=== PATIENT | female | born 1975 | race Caucasian/White ===

== ENCOUNTER 2025-01-01 18:24 | Emergency (ER) | payer OTHER, SELFPAY ==
[2025-01-01 18:36] VITALS: BP 103/68; PULSE 81; RESP 16; TEMP 36.2; O2SAT 100
--- NOTE | 2025-01-01 18:48 | ED_ITS ---
HPI - Extremity Problem General Chief complaint: Skin/Abscess/Foreign Body Stated complaint: Skin Issues Time Seen by Provider: 01/01/25 18:40 Source: patient Mode of arrival: ambulatory Limitations: no limitations History of Present Illness HPI Narrative: Cristela is a 49-year-old female patient presenting to the clinic today with complaints of right arm pain x2 days. She reports she developed a swollen knotted area to the right medial arm near the elbow and now has a some knotted areas along the medial proximal forearm. Tender to palpation. No swelling of the right upper extremity. Denies any headache, visual changes, confusion, shortness of breath, or chest pain. No known injury or recent blood draw. Is concerned about a blood clot. Related Data Home Medications ?Medication ?Instructions ?Recorded ?Confirmed ?Last Taken ?Type aspirin 81 mg .Route DAILY 01/01/25 Unknown History celecoxib 200 mg capsule mg 01/01/25 Unknown History dulaglutide 0.75 mg/0.5 mL mg subcut 01/01/25 Unknown History subcutaneous pen injector (Trulicity) empagliflozin 25 mg tablet mg 01/01/25 Unknown History (Jardiance) ferrous sulfate 325 mg (65 mg mg 01/01/25 Unknown History iron) tablet (FeroSul) fluoxetine 20 mg capsule mg 01/01/25 Unknown History meloxicam 15 mg tablet mg 01/01/25 Unknown History metformin 500 mg tablet mg 01/01/25 Unknown History metoprolol succinate 25 mg mg PO 01/01/25 Unknown History tablet,extended release 24 hr omeprazole 20 mg capsule,delayed mg 01/01/25 Unknown History release pregabalin 100 mg capsule mg 01/01/25 Unknown History rosuvastatin 10 mg tablet mg 01/01/25 Unknown History tramadol 50 mg tablet mg 01/01/25 Unknown History trazodone 50 mg tablet mg 01/01/25 Unknown History Allergies Allergy/AdvReac Type Severity Reaction Status Date / Time amoxicillin (From Augmentin) Allergy Mild hives Verified 01/01/25 18:51 clavulanic acid (From Allergy Mild hives Verified 01/01/25 18:52 Augmentin) Penicillins Allergy Hives Verified 01/01/25 18:52 [facility] Comments At the time of my signature, I reviewed and agree with the nursing past medical, surgical, social, and family history. There is no relevant family history pert inent to the patient complaint. Exam Narrative: General: Well-developed, obese, in no apparent distress Head: Normocephalic, atraumatic. Cardio: Regular rate and rhythm, s1 and s2 normal, no murmur appreciated. Resp: Clear to auscultation bilaterally, no rhonchi, rales, wheezing or rubs. Musculoskeletal: No deformity, tender to palpation of nodule like structure in the subcutaneous tissue of the right medial arm near the elbow and proximal forearm, grossly normal range of motion, muscle strength strong and equal, peripheral pulse strong, no edema, no cyanosis, normal gait and station Course Course Emergency Course: Portions of this record may have been created with voice recognition software. Level of Care: Express Care Visit Vital Signs Vital signs: Vital Signs Temperature 36.2 C L 01/01/25 18:36 Pulse Rate 81 01/01/25 18:36 Respiratory Rate 16 01/01/25 18:36 Blood Pressure 103/68 01/01/25 18:36 Pulse Oximetry 100 01/01/25 18:36 Oxygen Delivery Room Air 01/01/25 18:36 Temperature 36.2 C L 01/01/25 18:36 Pulse Rate 81 01/01/25 18:36 Respiratory Rate 16 01/01/25 18:36 Blood Pressure 103/68 01/01/25 18:36 Pulse Oximetry 100 01/01/25 18:36 Oxygen Delivery Room Air 01/01/25 18:36 Vital signs reviewed MDM - Extremity (Nontraumatic) MDM Narrative Medical decision making narrative: At the time of visit patient is resting comfortably on the exam table. Patient appears to be nontoxic. complaints of right arm pain x2 days. She reports she developed a swollen knotted area to the right medial arm near the elbow and now has a some knotted areas along the medial proximal forearm. Tender to palpation. No swelling of the right upper extremity. Denies any headache, visual changes, confusion, shortness of breath, or chest pain. No known injury or recent blood draw. Is concerned about a blood clot. On exam patient has no swelling or redness in the right arm, bilateral forearms and upper arms equal in size, she has a strong radial pulse. Has tender nodule like structure in the subcutaneous tissue of the right medial arm near the elbow and proximal forearm Plan: I suspect patient has painful nodule structures in the right medial forearm. No clinical sign of DVT. Recommend follow-up with PCP. Supportive measures were discussed with the patient and they voiced understanding discharge instructions and agrees to treatment plan. Return precautions reviewed Differential Diagnosis Differential diagnosis: Likely gout, superficial thrombophlebitis, deep venous thrombosis of upper extremity and other (Subcutaneous nodules, cyst, abscess) Discharge Plan Discharge Clinical Impression: Subcutaneous nodule of left upper extremity Patient Disposition: Home Condition: Stable Instructions: Antibiotic Form, Arm Pain (ED) Additional Instructions: No clinical sign of DVT in the clinic today. I suspect these are masses/nodules in the subcutaneous tissue of the right arm. May take Tylenol/ibuprofen as needed for pain per bottle directions. May apply ice or heat to the affected area to help alleviate pain May apply a lidocaine patch to the area to help alleviate pain Follow-up with your primary care doctor in 3-5 days if symptoms persist or sooner if they worsen Go to the emergency room if you develop worsening of pain, swelling in the right arm, decreased pulses, shortness of breath, chest pain, visual changes, headache, confusion, weakness, or any other concerning symptoms Patient Language: Bengali Follow-up/Referrals: PHYSICIAN,GRANTS DIRECTOR [Primary Care Provider] - Time of Disposition: 18:50 Quality NIHSS Nursing Documentation ED NIHSS nursing documentation: reviewed/agree
== END 2025-01-01 19:04 | disposition home or self-care (01) ==
PROVIDERS: Emergency Provider Nurse Practitioner Family
DX: R22.32 Localized swelling, mass and lump, left upper limb (principal); I10 Essential (primary) hypertension; E78.00 Pure hypercholesterolemia, unspecified; E11.9 Type 2 diabetes mellitus without complications; Z79.84 Long term (current) use of oral hypoglycemic drugs; K21.9 Gastro-esophageal reflux disease without esophagitis; Z79.82 Long term (current) use of aspirin
CPT/HCPCS: 99211; G0463